=== PATIENT | female | born 1940 | race Caucasian/White ===

== ENCOUNTER → 2016-11-13 | Outpatient (CLI) | payer BC ==
[~2016-11-13] MED LIST: REGADENOSON 0.4 MG/5 ML DISP.SYRIN. IV ONE
== END ==
LOC: PCVCIMAG 08:26
PROVIDERS: ATTEND Internal Medicine Cardiovascular Disease
DX: I48.91 Unspecified atrial fibrillation (principal); R06.00 Dyspnea, unspecified
CPT/HCPCS: 78452; 93017; A9500; J2785

== ENCOUNTER → 2017-06-21 | Outpatient (CLI) | payer BC ==
--- NOTE | 2017-06-21 09:49 | PCVCIMAG ---
APPROVED REPORT Study performed: 06/21/2017 08:17:41 EXAM: Comprehensive 2D, Doppler, and color-flow Echocardiogram Patient Location: Echo lab Status: routine BSA: 1.81 HR: 53 bpmBP: 134/72 mmHg Rhythm: NSR Other Information Study Quality: Adequate Indications Mitral Valve Prolapse Atrial Fibrillation Chest Pain 2D Dimensions LVEF(%): 56.68 (>50%) IVSd: 10.42 (7-11mm)LVOT Diam: 19.94 (18-24mm) LVDd: 31.32 mm PWd: 11.07 (7-11mm)Ascending Ao: 31.39 (22-36mm) LVDs: 22.34 (25-40mm) Left Atrium: 31.20 (27-40mm) Aortic Root: 28.99 mm LV Single Plane 4CH: 56.43 % LV Single Plane 2CH: 48.29 %Jamison's LVEF: 52.36 % Biplane EF: 50.8 % Volumes Left Atrial Volume (Systole) Single Plane 4CH: 33.59 mLSingle Plane 2CH: 57.35 mL LA ESV Index: 26.00 mL/m2 Aortic Valve AoV Peak Dago.: 1.53 m/s AO Peak Gr.: 9.34 mmHgLVOT Max P.33 mmHg LVOT Max V: 1.03 m/s KWADWO Vmax: 2.11 cm2 Mitral Valve E/A Ratio: 0.7 MV Decel. Time: 241.56 ms MV E Max Dago.: 0.66 m/s MV A Dago.: 0.92 m/s IVRT: 69.20 ms TDI E/Lateral E': 8.25E/Medial E': 8.25 Medial E' Dago.: 0.08 m/s Lateral E' Dago.: 0.08 m/s Pulmonary Valve PV Peak Dago.: 0.84 m/sPV Peak Gr.: 2.81 mmHg Pulmonary Vein P Vein S: 0.67 m/sP Vein A: 0.31 m/s P Vein D: 0.42 m/sP Vein A Dur.: 114.2 msec P Vein S/D Ratio: 1.60 Tricuspid Valve TR Peak Dago.: 2.15 m/sRAP Estimate: 7.00 mmHg TR Peak Gr.: 18.57 mmHg PA Pressure: 26.00 mmHg Left Ventricle The left ventricle is normal size. There is normal LV segmental wall motion. There is normal left ventricular wall thickness. Left ventricular systolic function is normal. The left ventricular ejection fraction is within the normal range. LVEF is 50-55%. Grade I - abnormal relaxation pattern. Right Ventricle The right ventricle is normal size. The right ventricular systolic function is normal. Atria The left atrium size is normal. The right atrium size is normal. Aortic Valve The aortic valve is normal in structure. The Aortic valve is sclerotic. Mild aortic regurgitation. There is no aortic valvular stenosis. Mitral Valve The mitral valve is normal in structure. There is mitral annular calcification. Trace mitral regurgitation. No evidence of mitral valve stenosis. Tricuspid Valve The tricuspid valve is normal in structure. Trace tricuspid regurgitation. Pulmonary artery pressure is 26 mmHg. Pulmonic Valve The pulmonary valve is normal in structure. Trace pulmonic regurgitation. Great Vessels The aortic root is normal in size. IVC is normal in size and collapses with >50% inspiration Pericardium There is no pericardial effusion. <Conclusion> The left ventricle is normal size. LVEF is 50-55%. Grade I - abnormal relaxation pattern. The right ventricle is normal size. The left atrium size is normal. The right atrium size is normal. There is no aortic valvular stenosis. Trace mitral regurgitation. Trace tricuspid regurgitation. Pulmonary artery pressure is 26 mmHg. There is no pericardial effusion.
== END | disposition home or self-care (01) ==
LOC: PCVCIMAG 07:50
PROVIDERS: ATTEND Internal Medicine Cardiovascular Disease
DX: I08.0 Rheumatic disorders of both mitral and aortic valves (principal); I48.0 Paroxysmal atrial fibrillation; I49.5 Sick sinus syndrome; R07.9 Chest pain, unspecified; Z79.899 Other long term (current) drug therapy
CPT/HCPCS: 80061; 93005; 93306; G0463